=== PATIENT | female | born 1990 | race Two or more races ===

== ENCOUNTER 2016-09-04 02:16 | Observation (INO) | payer MEDICAID ==
[2016-09-04] MEDS ORDERED: LORAZEPAM 2 MG/ML SOL ONE ×2 (02:22→02:46)
[2016-09-04] MEDS ORDERED: LORAZEPAM 2 MG/ML SOL IM ONE (02:25)
[2016-09-04] MEDS ORDERED: LORAZEPAM 2 MG/ML SOL IM PRN (02:25)
[2016-09-04] MEDS ORDERED: ONDANSETRON HCL 4 MG/2 ML SOL ONE (02:30)
[2016-09-04] MEDS: SODIUM CHLORIDE 0.9% 1000ML 1,000 ML IV SCH ×2 (02:30→03:31)
[2016-09-04] MEDS ORDERED: ONDANSETRON HCL 4 MG/2 ML SOL IV ONE (02:31)
[2016-09-04] MEDS ORDERED: LORAZEPAM 2 MG/ML SOL IV ONE ×2 (02:45→02:48)
[2016-09-04 03:21] LABS: BASOPHILS % (AUTO) 2 % (0-3); EOSINOPHILS % (AUTO) 1 % (0-9); HEMATOCRIT 41 % (35-47); MEAN CORPUSCULAR VOLUME 86 fL (81-99); MONOCYTES % (AUTO) 6.4 % (0-12); NEUTROPHILS % (AUTO) 75.2 % (37-80)
[2016-09-04 03:33] LABS: AMPHETAMINES POSITIVE (NEGATIVE); METHADONE NEGATIVE (NEGATIVE); OPIATES(OP13) NEGATIVE (NEGATIVE); OXYCODONE(OXY) NEGATIVE (NEGATIVE); PROPOXYPHENE(PPX) NEGATIVE (NEGATIVE); TRICYCLIC ANTIDEPRESSANTS NEGATIVE (NEGATIVE)
[2016-09-04] MEDS ORDERED: SODIUM CHLORIDE 0.9% 1000ML 1,000 ML IV ONE ×2 (03:33→03:53)
[2016-09-04 03:34] LABS: ALBUMIN 3.6 gm/dl (3.4-5.0); ALT 44 IU/L (14-63); CALCIUM 8.9 mg/dl (8.5-10.1); GLOM FILT RATE 48 mL/min (>60); POTASSIUM 5.3 mMol/L (3.5-5.1); SODIUM 140 mMol/L (136-145)
[2016-09-04] MEDS ORDERED: LORAZEPAM 2 MG/ML SOL IV PRN (04:22)
[2016-09-04] MEDS ORDERED: ONDANSETRON HCL 4 MG/2 ML SOL IV PRN (04:24)
[2016-09-04 08:31] LABS: POTASSIUM 3.9 mMol/L (3.5-5.1)
[2016-09-04 09:19] VITALS: BP 151/79; PULSE 73; RESP 18; O2SAT 98
[2016-09-04 09:35] VITALS: TEMP 96.7
[2016-09-04] MEDS ORDERED: SODIUM CHLORIDE 0.9% 1000ML 1,000 ML IV SCH (12:00)
== END 2016-09-04 11:45 | DRG 897 ==
LOC: ED 02:16 → ACUTE CARE 04:19
PROVIDERS: ADMIT Family Medicine; ATTEND Family Medicine
DX: F15.10 Other stimulant abuse, uncomplicated (principal); F41.0 Panic disorder [episodic paroxysmal anxiety]
CPT/HCPCS: 36415; 80048; 80053; 80305; 80307; 83735; 84100; 84703; 85025; 93005; 96365; 96366; 96372; 96374; 96375; 99285; 99291; J2060; J2405

== ENCOUNTER 2016-09-05 12:49 | Emergency (ER) | payer MEDICAID ==
[2016-09-05] MEDS ORDERED: KETOROLAC TROMETHAMINE 30 MG/ML SOL IV ONE (12:59)
[2016-09-05] MEDS ORDERED: ONDANSETRON HCL 4 MG/2 ML SOL IV ONE (12:59)
[2016-09-05] MEDS ORDERED: LORAZEPAM 2 MG/ML SOL IV ONE (13:00)
[2016-09-05] MEDS ORDERED: KETOROLAC TROMETHAMINE 30 MG/ML SOL ONE (13:01)
[2016-09-05] MEDS ORDERED: ONDANSETRON HCL 4 MG/2 ML SOL ONE (13:02)
[2016-09-05] MEDS ORDERED: LORAZEPAM 2 MG/ML SOL ONE (13:02)
[2016-09-05] MEDS ORDERED: HALOPERIDOL LACTATE 5 MG/ML SOL IM ONE (13:05)
[2016-09-05] MEDS ORDERED: HALOPERIDOL LACTATE 5 MG/ML SOL ONE (13:16)
[2016-09-05 13:34] VITALS: RESP 30; TEMP 97
[2016-09-05 14:20] VITALS: O2SAT 99
[2016-09-05 14:21] VITALS: BP 117/64; PULSE 74
== END 2016-09-05 14:17 | DRG 880 ==
LOC: ED 12:49
DX: F41.0 Panic disorder [episodic paroxysmal anxiety] (principal); F29 Unspecified psychosis not due to a substance or known physiological condition
CPT/HCPCS: 96372; 96374; 96375; 99283; 99284; J1630; J1885; J2060; J2405